=== PATIENT | male | born 1955 | race Caucasian/White ===

== ENCOUNTER 2020-10-31 16:20 | Emergency (ER) | payer MEDICARE, OTHER ==
[2020-10-31] MEDS ORDERED: Sodium Chloride 0.9% 2.5 ML Syringe FLUSH PRN (16:42)
[2020-10-31] MEDS ORDERED: Sodium Chloride 0.9% 10 ML Syringe FLUSH PRN (16:42)
[2020-10-31 17:16] LABS: BLOOD UREA NITROGEN,BUN 16 mg/dL (7.0-18.0); CARBON DIOXIDE,CO2 21.9 mmol/L (21.0-32.0); CHLORIDE,CL 103 mmol/L (98-107); GLUCOSE RANDOM 97 mg/dL (74-106); LIPASE 69 U/L (73-393); POTASSIUM,K 4.1 mmol/L (3.5-5.1); SODIUM,NA 139 mmol/L (136-148)
--- NOTE | 2020-10-31 17:17 | CR ---
INDICATION: Pain, shortness of breath. TECHNIQUE: Chest 1 view. COMPARISON: None. FINDINGS: No focal consolidation, pleural effusion, or pneumothorax. Tiny calcified granuloma in the left lower lung. Normal heart size and pulmonary vascularity. The bones are unremarkable. IMPRESSION: No acute cardiopulmonary findings. Dictated by Amaya Rosen MD @ Oct 31 2020 5:14PM Signed by Dr. Amaya Rosen @ Oct 31 2020 5:16PM
--- NOTE | 2020-10-31 17:30 | PCM.EKG ---
#1 Interpretation EKG Date: 10/31/20 Time: 17:05 Rhythm: NSR Rate (Beats/Min): 76 ST-T: Normal
[2020-10-31] MEDS ORDERED: cefTRIAXone 1 GM in Premix Bag 1 BAG IV ONE (17:34)
[2020-10-31] MEDS ORDERED: Iopamidol 755 MG/ML 500 ML Multipack Bottle IVPUSH ONE (17:47)
--- NOTE | 2020-10-31 18:13 | CT ---
INDICATION: Right lower quadrant pain for 1 week. History of stones. TECHNIQUE: CT of the abdomen and pelvis without and with 100 cc Isovue 370 IV contrast. Coronal and sagittal reconstructions. COMPARISON: None. FINDINGS: Few tiny low-attenuation lesions throughout the liver are too small to characterize but most likely represent cysts. Hepatic and portal veins are patent. The gallbladder, spleen, pancreas, and adrenal glands are negative. There is a delayed right nephrogram. 5 mm obstructing stone in the mid right ureter with moderate upstream right hydroureteronephrosis (series 301, image 109 and series 303, image 72). There is a short-segment of urothelial thickening and enhancement in the right ureter upstream from the stone. Mild periureteral inflammatory fat stranding. There are prominent vascular calcifications within both renal abner. No definite additional stones. Normal enhancement of the left kidney. No left hydronephrosis or ureteral dilation. Few small left renal cysts. Mild diffuse bladder wall thickening may be due to underdistention, inflammation, or chronic outlet obstruction. Mildly enlarged prostate gland. No bowel dilation. Colonic diverticulosis without evidence of diverticulitis. Negative appendix. No intraperitoneal free air or fluid. Fat containing right inguinal hernia. Prior left inguinal hernia repair with a soft tissue plug. Aortoiliac vascular calcifications. 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 No lymphadenopathy. Degenerative changes of the spine. Mild elevation of the left hemidiaphragm with associated mild left basilar atelectasis. Calcified granuloma in the right lower lobe. IMPRESSION: 1. 5 mm obstructing stone in the mid right ureter with moderate upstream right hydroureteronephrosis and delayed right nephrogram. 2. Mild diffuse bladder wall thickening may be due to underdistention, inflammation, or chronic outlet obstruction. Correlate with urinalysis. 3. 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 Please note that all CT scans at this facility use dose modulation, iterative reconstruction, and/or weight-based dosing when appropriate to reduce radiation dose to as low as reasonably achievable. Dictated by Amaya Rosen MD @ Oct 31 2020 5:54PM Signed by Dr. Amaya Rosen @ Oct 31 2020 6:12PM
[2020-10-31] MEDS ORDERED: Nicotine 21 MG/24 Hr Patch TRDERM ONE (19:27)
--- NOTE | 2020-10-31 19:38 | EDM.PDOC ---
ED HPI GENERAL MEDICAL PROBLEM - General Chief Complaint: Abdominal Pain Stated Complaint: RIGHT ABDOMINAL PAIN Time Seen by Provider: 10/31/20 16:33 Source of Information: Reports: Patient History Limitations: Reports: No Limitations - History of Present Illness INITIAL COMMENTS - FREE TEXT/NARRATIVE: HISTORY AND PHYSICAL: History of present illness: Patient is a 65 year old male who presents to the ED today with RLQ abdominal / flank pain since this morning. Patient states he has not been able to eat since this morning due to pain. Patient states that he has a history of coronary artery disease and has 2 prior stents placed in his heart. Patient states that he does smoke cigarettes and has a history of hypertension and hypercholesterol. Patient states he is also had increase in urinary frequency but denies any discomfort with urination. Patient denies any prior abdominal surgeries. Patient denies taking any medications or any other associated symptoms. Patient denies fever, chills, chest pain, shortness of breath, or cough. Denies headache, neck stiff ness, change in vision, syncope, or near syncope. Denies nausea, vomiting, diarrhea, constipation. Has not noted any blood in urine or stool. Review of systems: As per history of present illness and below otherwise all systems reviewed and negative. Past medical history: As per history of present illness and as reviewed below otherwise noncontributory. Surgical history: As per history of present illness and as reviewed below otherwise noncontributory. Social history: See social history for further information Family history: As per history of present illness and as reviewed below otherwise noncontributory. Physical exam: General: Patient is alert, oriented, and in no acute distress. Patient laying comfortably on exam table. Vitals stable and reviewed by me. HEENT: Atraumatic, normocephalic, pupils equal and reactive bilaterally, negative for conjunctival pallor or scleral icterus, mucous membranes moist, TMs normal bilaterally, throat clear, neck supple, nontender, trachea midline. No drooling or trismus noted. No meningeal signs. No hot potato voice noted. Lungs: Clear to auscultation, breath sounds equal bilaterally, chest nontender. Heart: S1S2, regular rate and rhythm without overt murmur Abdomen: Soft, nondistended, moderate RLQ tenderness without guarding, negative rebound. Negative for masses or hepatosplenomegaly. Negative for costovertebral tenderness. Pelvis: Stable nontender. Genitourinary: Deferred. Rectal: Deferred. Skin: Intact, warm, dry. No lesions or rashes noted. Extremities: Atraumatic, negative for cords or calf pain. Neurovascular unremarkable. Neuro: Awake, alert, oriented. Cranial nerves II through XII unremarkable. Cerebellum unremarkable. Motor and sensory unremarkable throughout. Exam nonfocal. Notes: Dr. Jackson, urology, and is unavailable. I did call and speak to Dr. Lemon, urology at [facility], and accepting of transfer. EMS arranged. Diagnostics: EKG, CBC, CMP, UA, Lipase, Abd/Pelvic CT, Urine culture, trop, CXR, lactate Therapeutics: Rocephin, Nicotine patch Impression: Ureterolithiasis with infection Urinary tract infection Plan: Transfer to [facility] to Dr. Lemon, urology via EMS. Definitive disposition and diagnosis as appropriate pending reevaluation and review of above. Abdomen Pain Score (Numeric/FACES): 5 - Related Data Allergies Allergy/AdvReac Type Severity Reaction Status Date / Time No Known Allergies Allergy Verified 10/31/20 16:44 Home Meds: Home Meds Propranolol HCl [Propranolol] 80 mg PO DAILY 05/05/18 [History] atorvaSTATin [Lipitor] 60 mg PO DAILY 05/05/18 [History] metFORMIN [Glucophage XR] 500 mg PO DAILY 05/05/18 [History] Past Medical History Cardiovascular History: Reports: Heart Murmur, High Cholesterol, Hypertension, ID Endocrine/Metabolic History: Reports: Other (See Below) Other Endocrine/Metabolic History: pre-diabetes - Infectious Disease History Infectious Disease History: Reports: None Social & Family History - Family History Family Medical History: No Pertinent Family History - Tobacco Use Tobacco Use Status *Q: Current Every Day Tobacco User Years of Tobacco use: 50 Packs/Tins Daily: 1 - Caffeine Use Caffeine Use: Reports: Coffee - Recreational Drug Use Recreational Drug Use: No ED ROS GENERAL - Review of Systems Review Of Systems: Comprehensive ROS is negative, except as noted in HPI. ED EXAM, GENERAL - Physical Exam Exam: See Below (see dictation) Course - Vital Signs Last Recorded V/S: Last Vital Signs Temp 98.1 F 10/31/20 19:35 Pulse 74 10/31/20 19:35 Resp 16 10/31/20 19:35 BP 146/86 H 10/31/20 19:35 Pulse Ox 94 L 10/31/20 19:35 - Orders/Labs/Meds Orders: Active Orders 24 hr Category Date Time Status CULTURE URINE [RM] Stat Lab 10/31/20 16:35 Received Saline Lock Insert [OM.PC] Stat Oth 10/31/20 16:42 Ordered Labs: Laboratory Tests 10/31/20 10/31/20 10/31/20 Range/Units 16:35 16:35 16:35 WBC 15.34 H (4.0-11.0) K/uL RBC 4.81 (4.50-5.90) M/uL Hgb 14.2 (13.0-17.0) g/dL Hct 42.6 (38.0-50.0) % MCV 88.6 (80.0-98.0) fL MCH 29.5 (27.0-32.0) pg MCHC 33.3 (31.0-37.0) g/dL RDW Std Deviation 45.3 (28.0-62.0) fl RDW Coeff of P[place] 14 (11.0-15.0) % Plt Count 243 (150-400) K/uL MPV 10.30 (7.40-12.00) fL Neut % (Auto) 71.4 (48.0-80.0) % Lymph % (Auto) 15.3 L (16.0-40.0) % [place] % (Auto) 10.7 (0.0-15.0) % Eos % (Auto) 2.3 (0.0-7.0) % Baso % (Auto) 0.3 (0.0-1.5) % Neut # (Auto) 11.0 H (1.4-5.7) K/uL Lymph # (Auto) 2.3 (0.6-2.4) K/uL [place] # (Auto) 1.6 H (0.0-0.8) K/uL Eos # (Auto) 0.4 (0.0-0.7) K/uL Baso # (Auto) 0.0 (0.0-0.1) K/uL Nucleated RBC % 0.0 /100WBC Nucleated RBCs # 0 K/uL Lactate (0.20-2.00) mmol/L Sodium 139 (136-148) mmol/L Potassium 4.1 (3.5-5.1) mmol/L Chloride 103 (98-107) mmol/L Carbon Dioxide 21.9 (21.0-32.0) mmol/L BUN 16 (7.0-18.0) mg/dL Creatinine 1.0 (0.8-1.3) mg/dL Est Cr Clr Drug Dosing 67.02 mL/min Estimated GFR (MDRD) > 60.0 ml/min Glucose 97 (74-106) mg/dL Calcium 8.9 (8.5-10.1) mg/dL Total Bilirubin 0.4 (0.2-1.0) mg/dL AST 13 L (15-37) IU/L ALT 30 (14-63) IU/L Alkaline Phosphatase 92 (46-116) U/L Troponin I (0.000-0.056) ng/mL Total Protein 7.7 (6.4-8.2) g/dL Albumin 3.7 (3.4-5.0) g/dL Globulin 4.0 (2.6-4.0) g/dL Albumin/Globulin Ratio 0.9 (0.9-1.6) Lipase 69 L (73-393) U/L Urine Color YELLOW Urine Appearance HAZY Urine pH 5.5 (5.0-8.0) Ur Specific [place] 1.020 (1.001-1.035) Urine Protein NEGATIVE (NEGATIVE) mg/dL Urine Glucose (UA) NEGATIVE (NEGATIVE) mg/dL Urine Ketones NEGATIVE (NEGATIVE) mg/dL Urine Occult Blood MODERATE H (NEGATIVE) Urine Nitrite NEGATIVE (NEGATIVE) Urine Bilirubin NEGATIVE (NEGATIVE) Urine Urobilinogen 0.2 (<2.0) EU/dL Ur Leukocyte Esterase SMALL H (NEGATIVE) Urine RBC 4-8 (0-2/HPF) Urine WBC 20-25 (0-5/HPF) Ur Epithelial Cells RARE (NONE-FEW) Urine Bacteria 2+ H (NEGATIVE) SARS-CoV-2 RNA (ALEXANDR) (NEGATIVE) 10/31/20 10/31/20 10/31/20 Range/Units 16:40 16:40 19:32 WBC (4.0-11.0) K/uL RBC (4.50-5.90) M/uL Hgb (13.0-17.0) g/dL Hct (38.0-50.0) % MCV (80.0-98.0) fL MCH (27.0-32.0) pg MCHC (31.0-37.0) g/dL RDW Std Deviation (28.0-62.0) fl RDW Coeff of [place] (11.0-15.0) % Plt Count (150-400) K/uL MPV (7.40-12.00) fL Neut % (Auto) (48.0-80.0) % Lymph % (Auto) (16.0-40.0) % [place] % (Auto) (0.0-15.0) % Eos % (Auto) (0.0-7.0) % Baso % (Auto) (0.0-1.5) % Neut # (Auto) (1.4-5.7) K/uL Lymph # (Auto) (0.6-2.4) K/uL [place] # (Auto) (0.0-0.8) K/uL Eos # (Auto) (0.0-0.7) K/uL Baso # (Auto) (0.0-0.1) K/uL Nucleated RBC % /100WBC Nucleated RBCs # K/uL Lactate 1.2 (0.20-2.00) mmol/L Sodium (136-148) mmol/L Potassium (3.5-5.1) mmol/L Chloride (98-107) mmol/L Carbon Dioxide (21.0-32.0) mmol/L BUN (7.0-18.0) mg/dL Creatinine (0.8-1.3) mg/dL Est Cr Clr Drug Dosing mL/min Estimated GFR (MDRD) ml/min Glucose (74-106) mg/dL Calcium (8.5-10.1) mg/dL Total Bilirubin (0.2-1.0) mg/dL AST (15-37) IU/L ALT (14-63) IU/L Alkaline Phosphatase (46-116) U/L Troponin I < 0.050 (0.000-0.056) ng/mL Total Protein (6.4-8.2) g/dL Albumin (3.4-5.0) g/dL Globulin (2.6-4.0) g/dL Albumin/Globulin Ratio (0.9-1.6) Lipase (73-393) U/L Urine Color Urine Appearance Urine pH (5.0-8.0) Ur Specific [place] (1.001-1.035) Urine Protein (NEGATIVE) mg/dL Urine Glucose (UA) (NEGATIVE) mg/dL Urine Ketones (NEGATIVE) mg/dL Urine Occult Blood (NEGATIVE) Urine Nitrite (NEGATIVE) Urine Bilirubin (NEGATIVE) Urine Urobilinogen (<2.0) EU/dL Ur Leukocyte Esterase (NEGATIVE) Urine RBC (0-2/HPF) Urine WBC (0-5/HPF) Ur Epithelial Cells (NONE-FEW) Urine Bacteria (NEGATIVE) SARS-CoV-2 RNA (ALEXANDR) NEGATIVE (NEGATIVE) Meds: Medications Discontinued Medications Generic Name Dose Route Start Last Admin Trade Name Freq PRN Reason Stop Dose Admin Ceftriaxone Sodium/Dextrose 1 50 mls @ 100 mls/hr 10/31/20 17:34 10/31/20 17:52 gm/ Premix IV 10/31/20 18:03 100 mls/hr ONETIME ONE Administration Iopamidol 100 ml 10/31/20 17:47 10/31/20 17:47 Isovue Multipack-370 (76%) IVPUSH 10/31/20 17:48 100 ml ONETIME ONE Administration Nicotine 21 mg 10/31/20 19:27 10/31/20 19:49 Habitrol TRDERM 10/31/20 19:28 Not Given ONETIME ONE Sodium Chloride 10 ml 10/31/20 16:42 10/31/20 17:02 Saline Flush FLUSH 10 ml ASDIRECTED PRN Administration Keep Vein Open Sodium Chloride 2.5 ml 10/31/20 16:42 10/31/20 17:02 Saline Flush FLUSH 2.5 ml ASDIRECTED PRN Administration Keep Vein Open Departure - Departure Time of Disposition: 19:38 Disposition: DC/Tfer to [facility] 02 Clinical Impression: Ureterolithiasis Urinary tract infection Qualifiers: Urinary tract infection type: acute cystitis Hematuria presence: with hematuria Qualified Code(s): N30.01 - Acute cystitis with hematuria - Discharge Information Referrals: PCP,Not In Area [Primary Care Provider] - Forms: ED Department Discharge Sepsis Event Note (ED) - Evaluation Sepsis Screening Result: No Definite Risk - Focused Exam Vital Signs: Vital Signs Temp Pulse Resp BP Pulse Ox 10/31/20 19:35 98.1 F 74 16 146/86 H 94 L 10/31/20 17:30 98 18 152/87 H 94 L 10/31/20 17:00 99 18 144/82 H 94 L 10/31/20 16:40 99.1 F 79 18 133/73 96 - My Orders Last 24 Hours: My Active Orders 10/31/20 16:35 CULTURE URINE [RM] Stat 10/31/20 16:42 Saline Lock Insert [OM.PC] Stat - Assessment/Plan Last 24 Hours: My Active Orders 10/31/20 16:35 CULTURE URINE [RM] Stat 10/31/20 16:42 Saline Lock Insert [OM.PC] Stat
== END 2020-10-31 20:38 ==
LOC: MW.ED 16:20
DX: N30.01 Acute cystitis with hematuria (principal); N13.2 Hydronephrosis with renal and ureteral calculous obstruction; E78.00 Pure hypercholesterolemia, unspecified; I10 Essential (primary) hypertension; I25.2 Old myocardial infarction; I25.10 Atherosclerotic heart disease of native coronary artery without angina pectoris; Z95.5 Presence of coronary angioplasty implant and graft; R73.03 Prediabetes; Z79.84 Long term (current) use of oral hypoglycemic drugs; Z79.899 Other long term (current) drug therapy; Z72.0 Tobacco use; Z20.822 Contact with and (suspected) exposure to COVID-19
CPT/HCPCS: 36415; 71045; 74178; 80053; 81001; 83605; 83690; 84484; 85025; 87086; 87088; 87186; 93005; 96365; 99285; J0696; Q9967; U0002; 93010; 99284

== ENCOUNTER 2020-11-20 09:24 | Day surgery (SDC) | payer MEDICARE, OTHER ==
[~2020-11-20 09:24] MED LIST: Lactated Ringers 1,000 ML IV SCH; Sodium Chloride 0.9% 10 ML Syringe FLUSH PRN; Sodium Chloride 0.9% 2.5 ML Syringe FLUSH PRN; ceFAZolin 2 GM in Premix Bag 1 BAG IV ONE
--- NOTE | 2020-11-20 10:06 | PCM.PREANE ---
Preanesthetic Assessment - Anesthesia/Transfusion/Family Hx Anesthesia History: Prior Anesthesia Without Reaction Family History of Anesthesia Reaction: No Transfusion History: No Prior Transfusion(s) Intubation History: Unknown - Review of Systems General: No Symptoms Pulmonary: No Symptoms Cardiovascular: No Symptoms Gastrointestinal: No Symptoms Neurological: No Symptoms Other: Reports: None - Physical Assessment Vital Signs: Last Vital Signs Temp 36.5 C 11/20/20 09:48 Pulse 61 11/20/20 09:48 Resp 16 11/20/20 09:48 BP 146/78 H 11/20/20 09:48 Pulse Ox 95 11/20/20 09:48 Height: 5 ft 7 in Weight: 85.729 kg ASA Class: 2 Mental Status: Alert & Oriented x3 Airway Class: Mallampati = 2 Dentition: Reports: Normal Dentition (loose tooth x1 upper left (back)) Thyro-Mental Finger Breadths: 3 Mouth Opening Finger Breadths: 2 ROM/Head Extension: Limited/Partial Lungs: Clear to Auscultation, Normal Respiratory Effort Cardiovascular: Regular Rate, Regular Rhythm - Allergies Allergies/Adverse Reactions: Allergies Allergy/AdvReac Type Severity Reaction Status Date / Time snails Allergy Nausea and Uncoded 11/20/20 09:54 Vomiting - Blood Blood Available: No - Anesthesia Plan Pre-Op Medication Ordered: None - Acknowledgements Anesthesia Type Planned: General Anesthesia Pt an Appropriate Candidate for the Planned Anesthesia: Yes Alternatives and Risks of Anesthesia Discussed w Pt/Guardian: Yes Pt/Guardian Understands and Agrees with Anesthesia Plan: Yes PreAnesthesia Questionnaire HEENT History: Reports: Other (See Below) Other HEENT History: wears glasses Cardiovascular History: Reports: High Cholesterol, Hypertension, [place] (2010 with stent placement, no problems since) Other Respiratory History: smokes 1PPD for 40 years Genitourinary History: Reports: Renal Calculus Other Genitourinary History: passed a stone 2 years ago Musculoskeletal History: Reports: Fracture Other Musculoskeletal History: hx of fx ankle- casted Neurological History: Reports: Other (See Below) (tremors) Other Neuro History: hx of motion sickness Endocrine/Metabolic History: Reports: Other (See Below) Other Endocrine/Metabolic History: pre-diabetic - Infectious Disease History Infectious Disease History: Reports: None - Past Surgical History Head Surgeries/Procedures: Reports: None HEENT Surgical History: Reports: Other (See Below) Other HEENT Surgeries/Procedures: excision of cyst right side of face Cardiovascular Surgical History: Reports: Coronary Artery Stent Other Cardiovascular Surgeries/Procedures: hx of [place] in 2011 - stent inserted, no symptoms since GI Surgical History: Reports: Hernia, Abdominal Other Female Surgeries/Procedures: insertion of right ureteral stent Male Surgical History: Reports: Other (See Below) - SUBSTANCE USE Tobacco Use Status *Q: Current Every Day Tobacco User (1 ppd) Tobacco Use Within Last Twelve Months: Cigarettes Recreational Drug Use History: No - HOME MEDS Home Medications: Home Meds Propranolol HCl [Propranolol] 80 mg PO BEDTIME 05/05/18 [History] atorvaSTATin [Lipitor] 60 mg PO BEDTIME 05/05/18 [History] metFORMIN [Glucophage XR] 500 mg PO BEDTIME 05/05/18 [History] Aspirin [Adult Aspirin Regimen] 81 mg PO BEDTIME 11/14/20 [History] - CURRENT (IN HOUSE) MEDS Current Meds: Current Medications Lactated Ringer's (Ringers, Lactated) 1,000 mls @ 100 mls/hr IV ASDIRECTED [facility] Last Admin: 11/20/20 09:53 Dose: 100 mls/hr Documented by: Sodium Chloride (Sodium Chloride 0.9% 10 Ml Syringe) 10 ml FLUSH ASDIRECTED PRN PRN Reason: Keep Vein Open Sodium Chloride (Sodium Chloride 0.9% 2.5 Ml Syringe) 2.5 ml FLUSH ASDIRECTED PRN PRN Reason: Keep Vein Open Discontinued Medications Cefazolin Sodium/Dextrose 2 gm (/ Premix) 50 mls @ 100 mls/hr IV ONCALL ONE Stop: 11/20/20 06:29
[2020-11-20] MEDS ORDERED: Midazolam 1 MG/ML 2 ML SDV ONE (13:14)
[2020-11-20] MEDS ORDERED: Propofol 200 MG/20 ML SDV ONE (13:14)
[2020-11-20] MEDS ORDERED: fentaNYL 100 MCG/2 ML SDV ONE (13:14)
[2020-11-20] MEDS ORDERED: Rocuronium Bromide 50 MG/5 ML Syringe ONE (13:15)
[2020-11-20] MEDS ORDERED: Ondansetron 4 MG/2 ML SDV ONE (13:15)
[2020-11-20] MEDS ORDERED: Lidocaine 2% 5 ML SDV ONE (13:15)
[2020-11-20] MEDS ORDERED: Glycopyrrolate 0.2 MG/ML SDV ONE ×2 (13:15→13:17)
[2020-11-20] MEDS ORDERED: Ketorolac 30 MG/ML SDV ONE (13:15)
[2020-11-20] MEDS ORDERED: Phenylephrine 1% 10 MG/ML SDV ONE (13:51)
[2020-11-20] MEDS ORDERED: Sodium Chloride 0.9% 20 ML ONE (13:57)
[2020-11-20] MEDS ORDERED: ceFAZolin 1 GM Vial ONE (13:57)
[2020-11-20] MEDS ORDERED: Sugammadex Sodium 200 MG/2 ML VIAL ONE (14:19)
--- NOTE | 2020-11-20 14:55 | PCM.POSTAN ---
POST ANESTHESIA ASSESSMENT - MENTAL STATUS Mental Status: Alert, Oriented - VITAL SIGNS Vital Signs: Last Vital Signs Temp 36.4 C 11/20/20 14:28 Pulse 71 11/20/20 14:49 Resp 18 11/20/20 14:49 BP 124/68 11/20/20 14:49 Pulse Ox 96 11/20/20 14:49 - RESPIRATORY Respiratory Status: Respiratory Rate WNL, Airway Patent, O2 Saturation Stable - CARDIOVASCULAR CV Status: Pulse Rate WNL, Blood Pressure Stable - GASTROINTESTINAL GI Status: No Symptoms - PAIN Pain Score: 0 - POST OP HYDRATION Hydration Status: Adequate & Stable
--- NOTE | 2020-11-20 15:28 | PCM48HPAN ---
Post Anesthesia Note - EVALUATION WITHIN 48HRS OF ANESTHETIC Vital Signs in Normal Range: Yes Patient Participated in Evaluation: Yes Respiratory Function Stable: Yes Airway Patent: Yes Cardiovascular Function Stable: Yes Hydration Status Stable: Yes Pain Control Satisfactory: Yes Nausea and Vomiting Control Satisfactory: Yes Mental Status Recovered: Yes Vital Signs: Last Vital Signs Temp 36.7 C 11/20/20 14:52 Pulse 67 11/20/20 15:12 Resp 16 11/20/20 15:12 BP 139/76 11/20/20 15:12 Pulse Ox 95 11/20/20 15:12
--- NOTE | 2020-11-20 17:19 | OR ---
SURGEON: Ami Vargas M.D. DATE OF PROCEDURE: 11/20/2020 PREOPERATIVE DIAGNOSIS: Right mid ureteral stone, 5 mm. POSTOPERATIVE DIAGNOSIS: Right mid ureteral stone, 5 mm. OPERATION: Ureteroscopy and stone removal. DESCRIPTION OF PROCEDURE: Patient was given general anesthesia. He is in the dorsal lithotomy position, prepped and draped in sterile drapes. The cystoscope was placed in the bladder without difficulty. The preexisting double-J stent was removed. The rigid ureteroscope was advanced in the right ureter. The stone was encountered in the right mid ureter. The Zero Tip basket was applied to the stone and the stone was removed without damage to the ureter on the first pass. With that done, the procedure was terminated. The specimen was submitted. The bladder was emptied. The patient was moved to recovery room in good condition. CECILIA / KEIKO /[id number]
[2020-11-20] MEDS ORDERED: Aspirin 81 MG Tab.EC PO SCH (21:00)
[2020-11-20] MEDS ORDERED: Propranolol 80 MG Cap.ER PO SCH (21:00)
[2020-11-20] MEDS ORDERED: atorvaSTATin 40 MG Tab PO SCH (21:00)
[2020-11-20] MEDS ORDERED: metFORMIN 500 MG Tab.ER PO SCH (21:00)
--- NOTE | 2020-11-21 09:48 | CR ---
INDICATION: Right ureteroscope with laser. FINDINGS: 3.3 seconds of fluoroscopy has been utilized for right ureteroscope and laser. Single image demonstrates instrumentation lower right abdomen. IMPRESSION: C-arm fluoroscopy for right ureteroscope and laser. Dictated by Leroy Lentz MD @ Nov 21 2020 9:47AM Signed by Dr. Leroy Lentz @ Nov 21 2020 9:47AM
== END 2020-11-20 15:39 | disposition home or self-care (01) ==
LOC: MW.SDS 09:24
PROVIDERS: ATTEND Urology
DX: N20.1 Calculus of ureter (principal); F17.210 Nicotine dependence, cigarettes, uncomplicated; E78.00 Pure hypercholesterolemia, unspecified; I10 Essential (primary) hypertension; I25.2 Old myocardial infarction; Z98.890 Other specified postprocedural states; Z91.038 Other insect allergy status
CPT/HCPCS: 52352; 82962; J0690; J1885; J2250; J2370; J2405; J2704; J3010; J3490; J7120; 88300